=== PATIENT | female | born 1940 | race Caucasian/White ===

== ENCOUNTER 2018-02-03 11:36 | Outpatient (CLI) | payer MEDICARE ==
--- NOTE | 2018-02-03 14:31 | MMO ---
BILATERAL SCREENING MAMMOGRAMS: Date: 02/03/18 HISTORY: Annual screening mammography. This patient's mammogram was interpreted with the assistance of computer-aided detection. COMPARISON: 04/05/16, 04/04/15, 03/23/14, and 01/11/11. FINDINGS: There is a heterogeneously dense parenchymal pattern, which may lower the sensitivity of mammography. Benign-appearing calcifications are again seen in each breast. There is a focal asymmetry seen in the axillary tail region of the upper left breast, which is stable dating back to study in 2010. There is also focal asymmetry and nodularity again present within the right breast, which is also stable over multiple prior studies dating back to 2010. No new dominant mass or suspicious grouping of microcalcifications are seen in either breast. IMPRESSION: BIRADS 2: Benign Finding(s) Routine annual mammographic screening is recommended. POS: DENITA
== END 2018-02-03 11:37 | disposition home or self-care (01) ==
LOC: SCSMAMMO 11:36
PROVIDERS: ATTEND Family Medicine
DX: Z12.31 Encounter for screening mammogram for malignant neoplasm of breast (principal)
CPT/HCPCS: 77067

== ENCOUNTER 2018-03-03 10:32 | Outpatient (CLI) | payer MEDICARE ==
[2018-03-03 11:51] LABS: Hemoglobin 11.3 g/dL (12.0-16.0); Mean Corpuscular HGB CONC 34.4 g/dL (32.0-36.0); Mean Corpuscular Hemoglobin 31.5 pg (27.0-31.0); Mean Corpuscular Volume 91.5 fL (78.0-98.0); Mean Platelet Volume 6.7 fL (7.4-10.4); Platelet Count 370 thou/uL (130-400); RBC Distribution Width 11.6 % (11.5-14.5); White Blood Cell (WBC) Count 7.4 thou/uL (4.8-10.8)
[2018-03-03 12:02] LABS: Anion Gap 12 mmol/L (10-20); BUN (Urea Nitrogen) 14 mg/dL (9.8-20.1); Calc. Creatinine Clearance 0 mL/min (70-130); Calcium 9.1 mg/dL (7.8-10.44); Carbon Dioxide 22 mmol/L (23-31); Chloride 103 mmol/L (98-107); Estimated GFR-MDRD 66; Glucose 120 mg/dL (83-110); Potassium 3.9 mmol/L (3.5-5.1); Sodium 133 mmol/L (136-145)
[2018-03-03 12:05] LABS: PTT 26.1 SEC (22.9-36.1); Prothrombin Time 13.4 SEC (12.0-14.7)
== END 2018-03-03 10:33 | disposition home or self-care (01) ==
LOC: LABBT 10:32
PROVIDERS: ATTEND Urology
DX: Z01.818 Encounter for other preprocedural examination (principal); R31.0 Gross hematuria
CPT/HCPCS: 80048; 85027; 85610; 85730; 93005; 93010

== ENCOUNTER 2018-03-12 09:26 | Day surgery (SDC) | payer MEDICARE ==
[2018-03-03 10:50] VITALS: BMI 25.7
[2018-03-12] MEDS ORDERED: Hydrocortisone Sod Succ/PF 100 mg/2 ml Vial IVP SCH (10:15)
[2018-03-12] MEDS ORDERED: CEFAZOLIN/Water 2 GM/20 ML SYRINGE ONE (10:40)
[2018-03-12] MEDS ORDERED: Fentanyl 100 MCG/2 ML VIAL ONE ×3 (10:50→13:02)
[2018-03-12] MEDS ORDERED: Ioversol 68 % 50 ML VIAL ONE (11:13)
--- NOTE | 2018-03-12 13:49 | RAD ---
IVP RETROGRADE: (6 views provided) Date: 03/12/18 INDICATION: Urolithiasis. FINDINGS: Fluoroscopic imaging from retrograde pyelogram reveals contrast opacification and appropriate caliber of the right collection system without a focal filling defect. The left collecting system is also op acified, mildly dilated, and there is deployment of a left side double-J ureteral stent with proximal coil overlying the left renal pelvis and distal coil at the left aspect of the urinary bladder. IMPRESSION: Retrograde pyelogram with placement of left ureteral stent. POS: DENITA
[2018-03-12] MEDS ORDERED: HYDROcodone/Acetaminophen 5/325 mg Tablet ONE (14:35)
--- NOTE | 2018-03-12 17:28 | OP ---
DATE OF PROCEDURE: 03/12/2018 PREOPERATIVE DIAGNOSIS: Gross hematuria. POSTOPERATIVE DIAGNOSES: Gross hematuria and large bladder tumor, left trigone. SURGEON: Rizwan Mercedes M.D. ANESTHESIA: General. ESTIMATED BLOOD LOSS: 75 mL DRAINS PLACED: A 6 x 22 left double-J stent without a string attached and 20 Bruneian Novak catheter w ith 20 mL in the balloon. FINDINGS: She had a large bladder tumor well over 5 cm in size, growing up off the left side of the trigone. Certainly grown well into the bladder. It was not papillary, but it grown out on thick sta lk. It was difficult to tell whether this would be muscle invasive or not, but we did do both superf icial as well as deep resection. It involved the left trigone and left ureteral orifice. Orifice nesbitt d to be resected, so we did pass a stent because of that. Both retrograde study showed no evidence o f obstruction either ureter nor any evidence of filling defects. OPERATIVE TECHNIQUE: Obtained written and verbal consent from the patient after receiving IV Solu-Co rtef and IV antibiotics, she was taken to the operating suite. She was placed in a supine position o n the treatment table. PlexiPulses were placed on lower extremities and turned on. She was given a general anesthetic and oral obturator intubation. She was placed in the dorsal lithotomy position, s terilely prepped and draped. Reduction Furnace Operator KUB was taken at the fluoroscopy unit. Cystoscopy was performed with a 22-Bruneian sheath. This was well lubricated and passed in direct vision through the female ure thra into the urinary bladder with aid of a 30-degree lens and video camera and monitor. The bladder was filled and emptied number of times and examined with both a 30 and the 70-degree lens with the f indings above. We then brought in the 24-Bruneian resectoscope with a visual obturator and passed it w ith aid of a 30-degree lens into the bladder and hooked up our gyrus generator and a bladder tumor lo op with a 30-degree lens and Nieves resectoscope. Right ureteral orifice was identified. Left ure teral orifice was covered with this tumor, so we started resection on the top and sides of the tumor bringing it down to near where it stalk was that was covering left trigone, resected down to the leve l of the bladder. We elliked out all this and sent it off as superficial, then resected some deep bi marlee through this and the same time identifying where the ureteral orifice was. We obtained hemostasi s with electrocautery unit. We removed these instruments, replaced the 22-Bruneian sheath, fed a guide wire up the left ureteral orifice and then a 5-Bruneian Pollack catheter up over this and did a retrogr tara study on that side showed no persistent filling defects or obstruction or extravasation. The angel dewire was then replaced and open-ended catheter was removed and a 6 x 22 Polaris double-J stent was pushed over the guidewire and pushed up into place with aid of a pusher, so its proximal end coiled i n the renal pelvis and its distal end coiled in the bladder when the wire was removed. The 5-Bruneian Pollack catheter was then used to do a right retrograde study was perfectly clear and normal. At thi s point, instruments were removed. A Novak catheter was sterilely placed, 20 mL placed in the balloo n, it was hooked up to drainage, it was clear. She was taken out of dorsal lithotomy position, awake aubrey, extubated, and taken by stretcher to the recovery room.
== END 2018-03-12 14:40 | disposition home or self-care (01) ==
LOC: SDC 09:26
PROVIDERS: ATTEND Urology
PROC: 0TBB8ZX Excision of Bladder, Via Natural or Artificial Opening Endoscopic, Diagnostic (ICD-10-PCS; principal; 2018-03-12)
PROC: 0T778DZ Dilation of Left Ureter with Intraluminal Device, Via Natural or Artificial Opening Endoscopic (ICD-10-PCS; 2018-03-12)
DX: C67.0 Malignant neoplasm of trigone of bladder (principal); I10 Essential (primary) hypertension; L40.9 Psoriasis, unspecified; Z79.899 Other long term (current) drug therapy; Z91.041 Radiographic dye allergy status
CPT/HCPCS: 52240; 52332; 74420; 88307; 96374; C1758; J1720; J3010; Q9967

== ENCOUNTER 2018-04-15 09:59 | Outpatient (CLI) | payer MEDICARE ==
[2018-04-15 10:57] LABS: #Eosinphils 0.2 thou/uL (0.0-0.7); #Lymphocytes 1.6 thou/uL (1.20-3.40); #Monocytes 0.4 thou/uL (0.11-0.59); #Neutrophils 3.5 thou/uL (1.40-6.50); %Basophils 0.7 % (0.0-1.0); %Eosinophils 3.8 % (0.0-10.0); %Monocytes 6.2 % (0.0-10.0); %Neutrophils 61.3 % (42.0-75.0); Hemoglobin 12.5 g/dL (12.0-16.0); Mean Corpuscular HGB CONC 32.8 g/dL (32.0-36.0); Mean Corpuscular Hemoglobin 29.7 pg (27.0-31.0); Mean Corpuscular Volume 90.4 fL (78.0-98.0); Mean Platelet Volume 6.9 fL (7.4-10.4); Platelet Count 339 thou/uL (130-400); RBC Distribution Width 12.3 % (11.5-14.5); White Blood Cell (WBC) Count 5.7 thou/uL (4.8-10.8)
[2018-04-15 11:11] LABS: PTT 27.6 SEC (22.9-36.1); Prothrombin Time 13.6 SEC (12.0-14.7)
[2018-04-15 11:14] LABS: Anion Gap 14 mmol/L (10-20); BUN (Urea Nitrogen) 15 mg/dL (9.8-20.1); Calc. Creatinine Clearance 0 mL/min (70-130); Carbon Dioxide 20 mmol/L (23-31); Chloride 104 mmol/L (98-107); Estimated GFR-MDRD 64; Glucose 103 mg/dL (83-110); Potassium 4.4 mmol/L (3.5-5.1); Sodium 134 mmol/L (136-145)
== END 2018-04-15 10:00 | disposition home or self-care (01) ==
LOC: LABBT 09:59
PROVIDERS: ATTEND Urology
DX: Z01.812 Encounter for preprocedural laboratory examination (principal); C67.9 Malignant neoplasm of bladder, unspecified
CPT/HCPCS: 80048; 85025; 85610; 85730

== ENCOUNTER 2018-04-21 06:08 | Day surgery (SDC) | payer MEDICARE ==
[2018-04-15 10:39] VITALS: BMI 25.7
[2018-04-21] MEDS ORDERED: cefTRIAXone\\ROCEPHIN 2 GM in Sodium Chloride 0.9% 100 ML IVPB SCH (06:45)
[2018-04-21] MEDS ORDERED: Midazolam HCl 2 mg/2 ml Vial ONE (07:04)
[2018-04-21] MEDS ORDERED: Fentanyl 100 MCG/2 ML VIAL ONE (07:04)
[2018-04-21] MEDS ORDERED: Hydrocortisone Sod Succ/PF 100 MG in Sodium Chloride 0.9% 50 ML IVPB SCH (07:15)
[2018-04-21] MEDS ORDERED: Iothalamate Meglumine 60% 50 ML VIAL FS ONE (08:38)
--- NOTE | 2018-04-21 09:50 | OP ---
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 Left floor has had stenting and she also has a CT scan that shows questionable tumor in the lower 1/3 of the left ureter. 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 Left floor has had stenting and she also has a CT scan that shows questionable tumor i n the lower 1/3 of the left ureter. PROCEDURE PERFORMED: Left rigid ureteroscopy, biopsies and brushings, repeat TURBT of the prior yasmany or site, exchange of left stent. SURGEON: Dr. Rizwan Mercedes ANESTHESIA: General. ESTIMATED BLOOD LOSS: Probably 50 mL. PATH SENT: Biopsies and brushings from the left lower third ureter and tissue from repeat TURBT. FINDINGS: On ureteroscopy she had nothing that appeared as transitional cell cancer of the mucosa of the lower third to half of the left distal ureter. She had some areas of superficial necrosis from a prior resection site, but nothing obviously suggested recurrent or persistent tumor in this region. We did reresect this area. Did not resect the ureteral orifice. It had already been resected, but we did not reresect this area, the orifice itself, but did change the stent out. OPERATIVE TECHNIQUE: After obtaining written and verbal consent from the patient after receiving IV antibiotics she was taken the operating suite. She was placed in supine position on the treatment ta ble. PlexiPulses were placed on her lower extremities and turned on. She was given a general anesth etic and oral intubation. She was placed in the dorsal lithotomy position. She was sterilely preppe d and draped. A fluoroscopy unit was brought in good position. She underwent cystoscopy with a 22-F rench sheath. This was well lubricated, passed under direct vision through the female urethra into t he urinary bladder with aid of a 30-degree lens, a video camera and monitor. The bladder examined wi th the 30- and 70-degree lens with the above findings. The distal end of the left double-J stent was grasped with a pair of flexible grasping forceps and brought out through the urethral meatus. A wir e was fed through it and the stent was removed over the guidewire and discarded. We then brought in a small caliber graduated rigid ureteroscope and with aid of a video camera and monitor, passed it th rough the female urethra into the bladder and up the left ureter went up intermediate up the left ureter w ell past the area that was appearing abnormal on the CAT scan. There were no mucosal abnormalities n oted. Using a small pill Piranha biopsy forceps, we biopsied repeatedly this area and then brushed t his area sending off the slide to the brush tip. We left the guidewire indwelling and then we irving t in our gyrus generator, our Nieves resectoscope with a gyrus bladder tumor loop, a 30-degree lens and a 24-Thai resectoscope sheath and we reresected the prior tumor site, removing all fragments a nd obtaining good hemostasis. At this point, the guidewire was backloaded through the 22 Thai handy th and we placed a 5-Thai Pollack catheter up the left ureter over the guidewire, removed the guide wire and injected about 10 mL of contrast. There was no extravasation noted, no filling defects note d. We replaced the guidewire and then passed the stent up over the guidewire, pushing up into place so its proximal end coiled in the renal pelvis and its distal end coiled in the bladder when the wire was removed. The instruments were removed. A Novak catheter was sterilely inserted about 15 mL wer e placed in the balloon and was hooked up to a leg bag, was placed on her right thigh. She was taken out of the dorsal spine position, awakened, extubated, and taken by stretcher to the recovery room. Of note is the fact that the very beginning of the case when she was first put to sleep a bimanual e xam was done, has somewhat foreshortened vagina from prior surgery, but I do not feel any obvious 3 d imensional mass or any evidence of fixation of the bladder to the sidewall.
[2018-04-21] MEDS ORDERED: Morphine 2 MG/ML SYRINGE ONE ×2 (10:59→11:22)
--- NOTE | 2018-04-21 11:06 | RAD ---
RETROGRADE PYELOGRAM 7 VIEWS: DATE: 04-21-18 HISTORY: Urothelial neoplasm. Biopsy. FINDINGS: The initial image demonstrates a ureteral stent with an incompletely formed upper curl overlying the left transverse process of L3, much lower than the ureteral stent position on the final image of the retrograde pyelogram of 03-12-18. The next set of images demonstrate replacement of the stent with a guidewire with distal tip overlying the left 11th rib, subsequent replacement of it with a catheter, and injection into a mildly dilated left renal collecting system, and finally placement of a new left sided ureteral stent with upper curl in the left renal collecting system overlying the left 12th rib . The lower portion of the stent has not yet been detached from the wire. IMPRESSION: Replacement of the previous left ureteral stent with a new left ureteral stent. POS: [facility]
[2018-04-21] MEDS ORDERED: traMADol HCl 50 MG TAB ONE (11:11)
[2018-04-21] MEDS ORDERED: Oxybutynin 5 MG TAB ONE (11:14)
[2018-04-21] MEDS ORDERED: PHENYLEPHRINE-NS 100 MCG/ML 10 ML SYRINGE ONE (13:50)
[2018-04-21] MEDS ORDERED: Glycopyrrolate 0.2 MG/ML 5 ML SYRINGE ONE (13:50)
[2018-04-21] MEDS ORDERED: PROPOFOL 200 MG/20 ML VIAL ONE (13:50)
[2018-04-21] MEDS ORDERED: Ondansetron PF 4 MG/2 ML Vial ONE (13:50)
[2018-04-21] MEDS ORDERED: Lidocaine 1% PF 5 ML VIAL ONE (13:50)
== END 2018-04-21 12:45 | disposition home or self-care (01) ==
LOC: SDC 06:08
PROVIDERS: ATTEND Urology
PROC: 0TBB8ZX Excision of Bladder, Via Natural or Artificial Opening Endoscopic, Diagnostic (ICD-10-PCS; principal; 2018-04-21)
PROC: 0T778DZ Dilation of Left Ureter with Intraluminal Device, Via Natural or Artificial Opening Endoscopic (ICD-10-PCS; 2018-04-21)
PROC: 0TB78ZX Excision of Left Ureter, Via Natural or Artificial Opening Endoscopic, Diagnostic (ICD-10-PCS; 2018-04-21)
DX: N30.00 Acute cystitis without hematuria (principal); N30.20 Other chronic cystitis without hematuria; I10 Essential (primary) hypertension; Z79.899 Other long term (current) drug therapy; Z91.041 Radiographic dye allergy status
CPT/HCPCS: 52204; 52332; 52354; 74420; 88112; 88305; 96374; C1758; 88104; J0131; J0696; J1720; J2001; J2250; J2270; J2405; J2704; J3010; J7050; Q9961

== ENCOUNTER 2018-07-13 10:54 | Emergency (ER) | payer MEDICARE | END 2018-07-13 11:27 | disposition home or self-care (01) | LOC: SCSER 10:54 | DX: Z46.6 Encounter for fitting and adjustment of urinary device (principal); I10 Essential (primary) hypertension; F41.9 Anxiety disorder, unspecified; F32.9 Major depressive disorder, single episode, unspecified; Z79.899 Other long term (current) drug therapy | CPT/HCPCS: 99282 ==

== ENCOUNTER 2023-04-23 10:15 | Outpatient (CLI) | payer MEDICARE | END 2023-04-23 10:16 | disposition home or self-care (01) | LOC: PET 10:15 | PROVIDERS: ATTEND Urology | DX: C67.0 Malignant neoplasm of trigone of bladder (principal); R59.1 Generalized enlarged lymph nodes; C77.1 Secondary and unspecified malignant neoplasm of intrathoracic lymph nodes | CPT/HCPCS: 78815; A9552 ==